=== PATIENT | female | born 1955 | race Caucasian/White ===

== ENCOUNTER 2020-02-16 06:04 | Day surgery (SDC) | payer MEDICARE, MEDICAID ==
[~2020-02-16] VITALS: Ht 170.2 cm; Wt 54.1 kg
[2020-02-16] MEDS ORDERED: SERT-153 PO (06:34)
[2020-02-16 06:41] VITALS: BP 116/71
[2020-02-16] MEDS ORDERED: albumin 25% 100mL bottle x 1 IV PRN (07:05)
== END 2020-02-16 08:30 | disposition home or self-care (01) ==
LOC: SSTAY O 06:04 → MED 3N 06:04 → SSTAY O 08:30
PROVIDERS: ATTEND Radiology Vascular & Interventional Radiology
DX: R18.8 Other ascites (principal); G61.0 Guillain-Barre syndrome; K74.60 Unspecified cirrhosis of liver; Z79.899 Other long term (current) drug therapy
CPT/HCPCS: 76705; GO378